=== PATIENT | female | born 1985 | race African-American/Black ===

== ENCOUNTER 2016-06-30 15:13 | Emergency (ER) | payer MEDICAID ==
[~2016-06-30] VITALS: Ht 170.2 cm; Wt 56.8 kg
[2016-06-30 15:16] VITALS: PULSE 72; TEMP 99.1
[2016-06-30] MEDS ORDERED: PRENATAL PO (15:19)
[2016-06-30] MEDS ORDERED: IRON325 MG PO (15:20)
[2016-06-30 16:27] LABS: BASO % 0.1 % (0.0-2.0); EOS # 0.1 (0.0-0.7); EOS % 1.4 % (0-4.0); GRAN # 6.3 (1.4-6.5); GRAN % 68.7 % (42.2-75.2); LYMPH % 21.2 % (20.0-51.0); MEAN CELL VOLUME 76 fl (80.0-100.0); MEAN CORPUSCULAR HGB CONC 34 g/dl (33.0-37.0); MEAN PLATELET VOLUME 10.9 fl (7.4-10.4); MONO # 0.8 (0.1-0.6); MONO % 8.4 % (1.7-9.3); PLATELET COUNT 253 K/mm3 (130-400); RED BLOOD COUNT 4.39 M/mm3 (4.10-5.30); REDCELL DISTRIBUTION WIDTH-CV 14.4 % (11.5-14.5); WHITE BLOOD COUNT 9.2 K/mm3 (4.8-10.8)
[2016-06-30 16:28] LABS: HEMATOCRIT 33.5 % (37.0-47.0); HEMOGLOBIN 11.4 g/dl (12.5-16.0); MEAN CORPUSCULAR HEMOGLOBIN 26 pg (27.0-31.0)
[2016-06-30 16:38] LABS: CALCIUM 9.5 mg/dL (8.4-10.2); CREATININE, serum 0.57 mg/dL (0.52-1.25); POTASSIUM 3.9 mmol/L (3.4-5.0)
[2016-06-30] MEDS ORDERED: PHENERGAN 25 TA25 MG PO (19:28)
[2016-06-30 19:29] VITALS: BP 118/54
== END 2016-06-30 19:29 | disposition home or self-care (01) ==
LOC: COL.ER 15:13
PROVIDERS: Emergency Medicine
DX: O99.89 Other specified diseases and conditions complicating pregnancy, childbirth and the puerperium (principal); R07.89 Other chest pain; Z3A.12 12 weeks gestation of pregnancy

== ENCOUNTER 2016-09-01 19:15 | Emergency (ER) | payer MEDICAID ==
[~2016-09-01] VITALS: Ht 170.2 cm; Wt 61.4 kg
[~2016-09-01 19:15] MED LIST: IRON325 MG PO; PHENERGAN 25 TA25 MG PO; PRENATAL PO
[2016-09-01 19:17] VITALS: TEMP 99.4
[2016-09-01 19:51] LABS: BASO % 0.2 % (0.0-2.0); EOS % 0.2 % (0-4.0); GRAN # 10.4 (1.4-6.5); GRAN % 85.9 % (42.2-75.2); LYMPH # 0.9 (1.2-3.4); LYMPH % 7.5 % (20.0-51.0); MEAN CELL VOLUME 81 fl (80.0-100.0); MEAN CORPUSCULAR HGB CONC 33 g/dl (33.0-37.0); MEAN PLATELET VOLUME 11.3 fl (7.4-10.4); MONO # 0.7 (0.1-0.6); MONO % 5.5 % (1.7-9.3); PLATELET COUNT 157 K/mm3 (130-400); RED BLOOD COUNT 3.85 M/mm3 (4.10-5.30); WHITE BLOOD COUNT 12.1 K/mm3 (4.8-10.8)
[2016-09-01 19:54] LABS: HEMATOCRIT 31.2 % (37.0-47.0); HEMOGLOBIN 10.3 g/dl (12.5-16.0); MEAN CORPUSCULAR HEMOGLOBIN 27 pg (27.0-31.0)
[2016-09-01 20:04] LABS: ADJUSTED CALCIUM 8.4 mg/dL (8.4-10.2); ALBUMIN 3.1 gm/dL (3.5-5.0); BILIRUBIN,TOTAL 0.5 mg/dL (0.0-1.0); CALCIUM 7.7 mg/dL (8.4-10.2); CREATININE, serum 0.49 mg/dL (0.52-1.25); POTASSIUM 3.6 mmol/L (3.4-5.0); TOTAL PROTEIN 6.2 gm/dL (6.4-8.2)
[2016-09-01 20:41] LABS: PH 7 (5-8); SQUAMOUS EPITHELIAL 0-2 /hpf; URINE APPEARANCE Clear; URINE BACTERIA Rare /hpf; URINE BILIRUBIN Negative (NEGATIVE); URINE BLOOD Negative (NEGATIVE); URINE COLOR Yellow; URINE GLUCOSE Negative (NEGATIVE); URINE KETONE Negative (NEGATIVE); URINE RBC 0-2 /hpf; URINE UROBILINOGEN Negative (NEGATIVE); URINE WBC 0-2 /hpf
[2016-09-01 22:46] VITALS: BP 103/53; PULSE 81
== END 2016-09-01 22:49 | disposition home or self-care (01) ==
LOC: COL.ER 19:15
PROVIDERS: Family Medicine
DX: O99.612 Diseases of the digestive system complicating pregnancy, second trimester (principal); Z3A.20 20 weeks gestation of pregnancy; K52.9 Noninfective gastroenteritis and colitis, unspecified
CPT/HCPCS: J2550; J7030

== ENCOUNTER 2016-09-26 08:23 | Outpatient (CLI) | payer MEDICAID ==
[~2016-09-26] VITALS: Ht 170.2 cm; Wt 60.9 kg
[2016-09-26 09:02] VITALS: BP 103/59; PULSE 81; TEMP 98.7
== END 2016-09-26 10:00 | disposition home or self-care (01) ==
LOC: LDRO 08:23
DX: O26.892 Other specified pregnancy related conditions, second trimester (principal); R10.9 Unspecified abdominal pain; Z3A.24 24 weeks gestation of pregnancy

== ENCOUNTER 2016-10-06 11:51 | Emergency (ER) | payer MEDICAID ==
[~2016-10-06] VITALS: Ht 170.2 cm; Wt 65.8 kg
[2016-10-06 11:53] VITALS: BP 110/58; PULSE 86; TEMP 98.2
[2016-10-06 12:50] LABS: PH 7 (5-8); URINE APPEARANCE Clear; URINE BILIRUBIN Negative (NEGATIVE); URINE BLOOD Negative (NEGATIVE); URINE COLOR Yellow; URINE GLUCOSE Negative (NEGATIVE); URINE KETONE Negative (NEGATIVE); URINE UROBILINOGEN Negative (NEGATIVE)
[2016-10-06 13:07] LABS: SQUAMOUS EPITHELIAL 0-2 /hpf; URINE WBC 0-2 /hpf
[2016-10-06] MEDS ORDERED: TERAZOL VG (13:20)
[2016-10-06 14:28] LABS: CHLAMYDIA/TRACH by PCR Female NOT DETECTED; NEISSERIA GON by PCR Female NOT DETECTED
== END 2016-10-06 13:30 | disposition home or self-care (01) ==
LOC: COL.ER 11:51
PROVIDERS: Nurse Practitioner
DX: O98.812 Other maternal infectious and parasitic diseases complicating pregnancy, second trimester (principal); B37.3 Candidiasis of vulva and vagina; Z3A.25 25 weeks gestation of pregnancy

== ENCOUNTER 2016-12-01 14:51 | Outpatient (CLI) | payer MEDICAID ==
[~2016-12-01] VITALS: Ht 170.2 cm; Wt 71.4 kg
[~2016-12-01 14:51] MED LIST changes: +TERAZOL VG
[2016-12-01 15:32] VITALS: BP 103/61; PULSE 74; TEMP 98.3
== END 2016-12-01 15:40 | disposition home or self-care (01) ==
LOC: LDRO 14:51
DX: Z34.83 Encounter for supervision of other normal pregnancy, third trimester (principal); Z3A.33 33 weeks gestation of pregnancy; F17.210 Nicotine dependence, cigarettes, uncomplicated

== ENCOUNTER 2016-12-14 20:41 | Outpatient (CLI) | payer MEDICAID ==
[~2016-12-14] VITALS: Ht 170.2 cm; Wt 68.2 kg
[2016-12-14 21:30] VITALS: BP 115/59; PULSE 16; TEMP 98.4
[2016-12-14 21:33] VITALS: BP 115/59; PULSE 70; TEMP 98.4
[2016-12-14 22:00] VITALS: BP 110/59; PULSE 71
[2016-12-14 22:30] VITALS: BP 111/59; PULSE 80
[2016-12-14 22:45] LABS: PH 7 (5-8); SQUAMOUS EPITHELIAL 0-2 /hpf; URINE APPEARANCE Clear; URINE BACTERIA None Seen /hpf; URINE BILIRUBIN Negative (NEGATIVE); URINE BLOOD Negative (NEGATIVE); URINE COLOR Yellow; URINE GLUCOSE Negative (NEGATIVE); URINE KETONE Negative (NEGATIVE); URINE RBC 0-2 /hpf; URINE UROBILINOGEN Negative (NEGATIVE); URINE WBC 0-2 /hpf
[2016-12-14 23:00] VITALS: BP 103/58; PULSE 65; TEMP 98.3
[2016-12-15] VITALS: BP 112/63; PULSE 68
[2016-12-15 00:30] VITALS: BP 108/57; PULSE 73; TEMP 98
[2016-12-15 01:00] VITALS: BP 101/55; PULSE 73
[2016-12-15 01:30] VITALS: BP 95/54; PULSE 68
[2016-12-15 02:00] VITALS: BP 100/58; PULSE 79
[2016-12-15 02:30] VITALS: BP 92/53; PULSE 75
== END 2016-12-15 03:36 | disposition home or self-care (01) ==
LOC: LDRO 20:41
PROVIDERS: Obstetrics & Gynecology
DX: O99.89 Other specified diseases and conditions complicating pregnancy, childbirth and the puerperium (principal); R10.9 Unspecified abdominal pain; Z3A.35 35 weeks gestation of pregnancy
CPT/HCPCS: J3105; J7120

== ENCOUNTER 2016-12-15 20:40 | Outpatient (CLI) | payer MEDICAID ==
[~2016-12-15] VITALS: Ht 170.2 cm; Wt 70.9 kg
[2016-12-15 21:15] VITALS: BP 116/62; PULSE 93; TEMP 98.7
[2016-12-15 21:30] VITALS: BP 116/62; PULSE 93; TEMP 98.7
[2016-12-15 22:00] VITALS: BP 106/63; PULSE 100
[2016-12-15 22:23] VITALS: BP 102/55; PULSE 84
== END 2016-12-15 23:05 ==
LOC: LDRO 20:40
DX: Z34.83 Encounter for supervision of other normal pregnancy, third trimester (principal); Z3A.35 35 weeks gestation of pregnancy

== ENCOUNTER 2016-12-18 18:55 | Outpatient (CLI) | payer MEDICAID ==
[~2016-12-18] VITALS: Ht 170.2 cm; Wt 71.8 kg
[2016-12-18 19:15] VITALS: BP 116/88; PULSE 90; TEMP 99.1
[2016-12-18 19:30] VITALS: BP 116/88; PULSE 90; TEMP 99.1
[2016-12-18 20:20] VITALS: TEMP 98.5
== END 2016-12-18 21:00 | disposition home or self-care (01) ==
LOC: LDRO 18:55
DX: O62.2 Other uterine inertia (principal); Z3A.35 35 weeks gestation of pregnancy

== ENCOUNTER 2016-12-23 19:31 | Outpatient (CLI) | payer MEDICAID ==
[~2016-12-23] VITALS: Ht 170.2 cm; Wt 71.4 kg
[2016-12-23] MEDS ORDERED: NIX CREME RINSE60 M1 TP (20:06)
[2016-12-23 21:30] VITALS: BP 106/65; PULSE 72; TEMP 98.6
== END 2016-12-23 22:19 | disposition home or self-care (01) ==
LOC: COL.ER 19:31 → LDRO 19:31 → EDSTATUS 20:35 → LDRO 22:19
DX: O62.9 Abnormality of forces of labor, unspecified (principal); O99.713 Diseases of the skin and subcutaneous tissue complicating pregnancy, third trimester; B85.0 Pediculosis due to Pediculus humanus capitis; Z3A.36 36 weeks gestation of pregnancy

== ENCOUNTER 2017-01-05 10:57 | Inpatient (IN) | payer MEDICAID ==
[2017-01-05] VITALS (24 sets, daily range): BP systolic 108–148; BP diastolic 53–86; PULSE 56–93; TEMP 97.4–98.3
[~2017-01-05] VITALS: Ht 170.2 cm; Wt 73.6 kg
[~2017-01-05 10:57] MED LIST changes: +NIX CREME RINSE60 M1 TP
[2017-01-05 13:25] LABS: BASO % 0.2 % (0.0-2.0); EOS # 0.2 (0.0-0.7); EOS % 1.7 % (0-4.0); GRAN # 6.2 (1.4-6.5); GRAN % 71.2 % (42.2-75.2); LYMPH # 1.5 (1.2-3.4); LYMPH % 17.3 % (20.0-51.0); MEAN CELL VOLUME 79 fl (80.0-100.0); MEAN CORPUSCULAR HGB CONC 33 g/dl (33.0-37.0); MEAN PLATELET VOLUME 12.2 fl (7.4-10.4); MONO # 0.8 (0.1-0.6); MONO % 8.9 % (1.7-9.3); PLATELET COUNT 185 K/mm3 (130-400); RED BLOOD COUNT 4.04 M/mm3 (4.10-5.30); REDCELL DISTRIBUTION WIDTH-CV 14.6 % (11.5-14.5); WHITE BLOOD COUNT 8.7 K/mm3 (4.8-10.8)
[2017-01-05 13:28] LABS: HEMATOCRIT 31.8 % (37.0-47.0); HEMOGLOBIN 10.5 g/dl (12.5-16.0); MEAN CORPUSCULAR HEMOGLOBIN 26 pg (27.0-31.0)
[2017-01-06 01:58] VITALS: BP 113/60; PULSE 56; TEMP 97.6
[2017-01-06 08:30] VITALS: BP 116/59; PULSE 75; TEMP 97.7
[2017-01-06] MEDS ORDERED: IBU800 M1 PO (08:36)
[2017-01-06 12:30] VITALS: BP 104/56; PULSE 64; TEMP 98.6
[2017-01-06 21:00] VITALS: BP 113/63; PULSE 70; TEMP 98
[2017-01-07 07:30] VITALS: BP 115/60; PULSE 57; TEMP 97.8
[2017-01-07] MEDS ORDERED: ZITHROMAX Z PA250 MG PO (11:49)
== END 2017-01-07 13:46 | disposition home or self-care (01) | DRG 775 ==
LOC: LDRO 10:57 → OB 13:00 → LDR 13:00 → OB 20:52
PROVIDERS: Obstetrics & Gynecology
PROC: 10E0XZZ Delivery of Products of Conception, External Approach (ICD-10-PCS; principal; 2017-01-05)
DX: O99.02 Anemia complicating childbirth (principal); D57.3 Sickle-cell trait; O99.824 Streptococcus B carrier state complicating childbirth; O99.334 Smoking (tobacco) complicating childbirth; F17.210 Nicotine dependence, cigarettes, uncomplicated; Z3A.38 38 weeks gestation of pregnancy; Z37.0 Single live birth
CPT/HCPCS: J2400; J2405; J2540; J2590; J2795; J3010; J7120

== ENCOUNTER 2017-05-27 10:00 | Emergency (ER) | payer MEDICAID ==
[~2017-05-27] VITALS: Ht 170.2 cm; Wt 57.3 kg
[~2017-05-27 10:00] MED LIST changes: +IBU800 M1 PO; +ZITHROMAX Z PA250 MG PO
[2017-05-27 10:03] VITALS: TEMP 99
[2017-05-27 10:49] LABS: BASO % 0.3 % (0.0-2.0); EOS # 0.5 (0.0-0.7); EOS % 7.5 % (0-4.0); GRAN % 50.4 % (42.2-75.2); LYMPH # 2.2 (1.2-3.4); LYMPH % 35.8 % (20.0-51.0); MEAN CELL VOLUME 80 fl (80.0-100.0); MEAN CORPUSCULAR HEMOGLOBIN 26 pg (27.0-31.0); MEAN CORPUSCULAR HGB CONC 33 g/dl (33.0-37.0); MEAN PLATELET VOLUME 10.5 fl (7.4-10.4); MONO # 0.4 (0.1-0.6); MONO % 5.8 % (1.7-9.3); PLATELET COUNT 266 K/mm3 (130-400); RED BLOOD COUNT 4.54 M/mm3 (4.10-5.30); REDCELL DISTRIBUTION WIDTH-CV 13.9 % (11.5-14.5)
[2017-05-27 10:52] LABS: HEMATOCRIT 36.4 % (37.0-47.0)
[2017-05-27 11:08] LABS: COLLECTION METHOD CLEAN CATCH
[2017-05-27 11:19] LABS: BUDDING YEAST Present /hpf; MUCOUS Present /lpf; PH 7 (5-8); SQUAMOUS EPITHELIAL 0-2 /hpf; URINE APPEARANCE Hazy; URINE BACTERIA Occasional /hpf; URINE BILIRUBIN Negative (NEGATIVE); URINE BLOOD 1+ (NEGATIVE); URINE COLOR Yellow; URINE GLUCOSE Negative (NEGATIVE); URINE KETONE Negative (NEGATIVE); URINE LEUKOCYTE ESTERASE 1+ (NEGATIVE); URINE NITRATE Positive (NEGATIVE); URINE PROTEIN(semi-quant) 1+ (NEGATIVE); URINE UROBILINOGEN Negative (NEGATIVE)
[2017-05-27] MEDS ORDERED: MACROBID 1100 MG/CAP PO (13:05)
[2017-05-27] MEDS ORDERED: FLAGYL500 MG PO (13:19)
[2017-05-27 13:29] VITALS: BP 118/76; PULSE 60
== END 2017-05-27 13:31 | disposition home or self-care (01) ==
LOC: COL.ER 10:00
PROVIDERS: Emergency Medicine
DX: N39.0 Urinary tract infection, site not specified (principal); N93.9 Abnormal uterine and vaginal bleeding, unspecified; F17.210 Nicotine dependence, cigarettes, uncomplicated

== ENCOUNTER 2017-07-20 12:47 | Emergency (ER) | payer MEDICAID ==
[~2017-07-20] VITALS: Ht 170.2 cm; Wt 56.8 kg
[~2017-07-20 12:47] MED LIST changes: +FLAGYL500 MG PO; +MACROBID 1100 MG/CAP PO
[2017-07-20 12:50] VITALS: BP 129/75; TEMP 98.6
[2017-07-20 13:36] LABS: BASO % 0.2 % (0.0-2.0); EOS # 0.3 (0.0-0.7); EOS % 4.2 % (0-4.0); GRAN # 3.8 (1.4-6.5); GRAN % 57.6 % (42.2-75.2); HEMOGLOBIN 12.3 g/dl (12.5-16.0); LYMPH # 2.1 (1.2-3.4); LYMPH % 31.5 % (20.0-51.0); MEAN CELL VOLUME 78 fl (80.0-100.0); MEAN CORPUSCULAR HEMOGLOBIN 26 pg (27.0-31.0); MEAN CORPUSCULAR HGB CONC 33 g/dl (33.0-37.0); MEAN PLATELET VOLUME 10.7 fl (7.4-10.4); MONO # 0.4 (0.1-0.6); MONO % 6.3 % (1.7-9.3); PLATELET COUNT 213 K/mm3 (130-400); RED BLOOD COUNT 4.71 M/mm3 (4.10-5.30); REDCELL DISTRIBUTION WIDTH-CV 14.4 % (11.5-14.5)
[2017-07-20 13:37] LABS: HEMATOCRIT 36.8 % (37.0-47.0)
[2017-07-20 13:45] LABS: ALBUMIN 4.5 gm/dL (3.5-5.0); BILIRUBIN,TOTAL 0.3 mg/dL (0.0-1.0); CALCIUM 9.1 mg/dL (8.4-10.2); CREATININE, serum 0.71 mg/dL (0.52-1.25); MAGNESIUM 1.8 mg/dL (1.6-2.3); POTASSIUM 3.6 mmol/L (3.4-5.0); TOTAL PROTEIN 7.6 gm/dL (6.4-8.2)
[2017-07-20 14:15] LABS: TSH w REFLEX 1.56 uIU/mL (0.465-4.680)
[2017-07-20 14:42] VITALS: PULSE 72
[2017-07-20 16:27] LABS: TRICYCLIC ANTIDEPRESS URINE NEGATIVE
== END 2017-07-20 14:43 | disposition home or self-care (01) ==
LOC: COL.ER 12:47
PROVIDERS: Physician Assistant
DX: F41.9 Anxiety disorder, unspecified (principal); D64.9 Anemia, unspecified; R25.1 Tremor, unspecified

== ENCOUNTER → 2018-03-09 | Outpatient (CLI) | payer MEDICAID | LOC: COL.VAS 10:00 | DX: R07.9 Chest pain, unspecified (principal); R06.09 Other forms of dyspnea ==

== ENCOUNTER → 2018-03-28 | Outpatient (CLI) | payer OTHER | LOC: COL.RAD 09:41 | DX: Z02.71 Encounter for disability determination (principal); M54.5 Low back pain ==

== ENCOUNTER 2018-08-13 09:17 | Emergency (ER) | payer MEDICAID ==
[~2018-08-13] VITALS: Ht 170.2 cm; Wt 51.4 kg
[2018-08-13 09:32] VITALS: TEMP 99
[2018-08-13 10:18] LABS: COLLECTION METHOD CLEAN CATCH
[2018-08-13 10:18] LABS: BASO % 0.4 % (0.0-2.0); EOS # 0.1 (0.0-0.7); EOS % 2.1 % (0-4.0); GRAN # 3.1 (1.4-6.5); GRAN % 58.2 % (42.2-75.2); HEMOGLOBIN 12.4 g/dl (12.5-16.0); LYMPH # 1.7 (1.2-3.4); LYMPH % 32.3 % (20.0-51.0); MEAN CELL VOLUME 79 fl (80.0-100.0); MEAN CORPUSCULAR HEMOGLOBIN 26 pg (27.0-31.0); MEAN CORPUSCULAR HGB CONC 34 g/dl (33.0-37.0); MEAN PLATELET VOLUME 10.3 fl (7.4-10.4); MONO # 0.4 (0.1-0.6); MONO % 6.6 % (1.7-9.3); PLATELET COUNT 202 K/mm3 (130-400); RED BLOOD COUNT 4.71 M/mm3 (4.10-5.30); REDCELL DISTRIBUTION WIDTH-CV 14.2 % (11.5-14.5)
[2018-08-13 10:26] LABS: MUCOUS Present /lpf; PH 6 (5-8); SQUAMOUS EPITHELIAL 0-2 /hpf; URINE APPEARANCE Clear; URINE BACTERIA None Seen /hpf; URINE BILIRUBIN Negative (NEGATIVE); URINE BLOOD 2+ (NEGATIVE); URINE COLOR Yellow; URINE GLUCOSE Negative (NEGATIVE); URINE KETONE Negative (NEGATIVE); URINE LEUKOCYTE ESTERASE Negative (NEGATIVE); URINE NITRATE Negative (NEGATIVE); URINE PROTEIN(semi-quant) 1+ (NEGATIVE); URINE RBC 0-2 /hpf; URINE UROBILINOGEN Negative (NEGATIVE)
[2018-08-13] MEDS ORDERED: IBU800 M1 PO (11:54)
[2018-08-13] MEDS ORDERED: FLAGYL500 MG PO (11:54)
[2018-08-13 12:02] VITALS: BP 105/55; PULSE 76
== END 2018-08-13 12:03 | disposition home or self-care (01) ==
LOC: COL.ER 09:17
PROVIDERS: Nurse Practitioner Primary Care
DX: N76.0 Acute vaginitis (principal); B96.89 Other specified bacterial agents as the cause of diseases classified elsewhere; N93.8 Other specified abnormal uterine and vaginal bleeding; F17.210 Nicotine dependence, cigarettes, uncomplicated; F12.90 Cannabis use, unspecified, uncomplicated

== ENCOUNTER → 2018-08-14 | Outpatient (CLI) | payer MEDICAID | LOC: COL.RAD 12:45 | DX: N93.9 Abnormal uterine and vaginal bleeding, unspecified (principal) ==

== ENCOUNTER → 2019-04-04 | Outpatient (CLI) | payer MEDICAID | LOC: COL.RAD 09:25 | DX: R39.11 Hesitancy of micturition (principal) ==

== ENCOUNTER → 2019-06-04 | Outpatient (CLI) | payer MEDICAID | LOC: COL.RAD 12:18 | DX: E61.1 Iron deficiency (principal); E55.9 Vitamin D deficiency, unspecified; E53.8 Deficiency of other specified B group vitamins; R25.3 Fasciculation ==

== ENCOUNTER 2019-06-18 11:04 | Emergency (ER) | payer MEDICAID ==
[~2019-06-18] VITALS: Ht 170.2 cm; Wt 50.0 kg
[~2019-06-18 11:04] MED LIST changes: -MULTI VITAMINS1 TAB PO; -NEURONTIN300 MG/CAP PO
[2019-06-18 11:25] VITALS: BP 97/64; TEMP 98.5
[2019-06-18] MEDS ORDERED: MULTI VITAMINS1 TAB PO (11:39)
[2019-06-18] MEDS ORDERED: NEURONTIN300 MG/CAP PO (11:39)
[2019-06-18 11:57] LABS: COLLECTION METHOD CLEAN CATCH
[2019-06-18 12:11] LABS: PH 7 (5-8); SQUAMOUS EPITHELIAL 0-2 /hpf; URINE APPEARANCE Clear; URINE BACTERIA Rare /hpf; URINE BILIRUBIN Negative (NEGATIVE); URINE BLOOD Negative (NEGATIVE); URINE COLOR Yellow; URINE GLUCOSE Negative (NEGATIVE); URINE KETONE Negative (NEGATIVE); URINE LEUKOCYTE ESTERASE Negative (NEGATIVE); URINE NITRATE Positive (NEGATIVE); URINE PROTEIN(semi-quant) Negative (NEGATIVE); URINE RBC 0-2 /hpf; URINE UROBILINOGEN Negative (NEGATIVE)
[2019-06-18] MEDS ORDERED: FLAGYL500 MG PO (12:26)
[2019-06-18 12:35] VITALS: PULSE 67
== END 2019-06-18 12:35 | disposition home or self-care (01) ==
LOC: COL.ER 11:04
PROVIDERS: Physician Assistant
DX: N76.0 Acute vaginitis (principal); B96.89 Other specified bacterial agents as the cause of diseases classified elsewhere; F17.210 Nicotine dependence, cigarettes, uncomplicated

== ENCOUNTER → 2019-06-18 | Outpatient (CLI) | payer MEDICAID ==
[~2019-06-18] MED LIST changes: +MULTI VITAMINS1 TAB PO; +NEURONTIN300 MG/CAP PO
== END ==
LOC: COL.RAD 10:19
DX: E55.9 Vitamin D deficiency, unspecified (principal); E53.9 Vitamin B deficiency, unspecified; E61.1 Iron deficiency

== ENCOUNTER → 2020-02-27 | Outpatient (CLI) | payer MEDICAID ==
[~2020-02-27] MED LIST changes: +MULTI VITAMINS1 TAB PO; +NEURONTIN300 MG/CAP PO
== END ==
LOC: COL.RAD 14:17
DX: M41.25 Other idiopathic scoliosis, thoracolumbar region (principal)

== ENCOUNTER → 2020-04-29 | Outpatient (CLI) | payer MEDICAID | LOC: COL.RAD 11:08 | DX: M95.2 Other acquired deformity of head (principal) ==

== ENCOUNTER → 2021-02-19 | Emergency (ER) | payer MEDICAID ==
[~2021-02-19] VITALS: Ht 170.2 cm; Wt 52.3 kg
[2021-02-19 20:15] VITALS: BP 109/66; PULSE 86; TEMP 97.2
== END ==
LOC: COL.ER 19:47
DX: R05.9 Cough, unspecified (principal); F17.210 Nicotine dependence, cigarettes, uncomplicated

== ENCOUNTER 2021-10-27 21:11 | Emergency (ER) | payer MEDICAID ==
[~2021-10-27] VITALS: Ht 170.2 cm; Wt 52.7 kg
[2021-10-27 21:14] VITALS: TEMP 98
[2021-10-27 21:54] LABS: COLLECTION METHOD CLEAN CATCH
[2021-10-27 21:59] LABS: BASO % 0.3 % (0.0-2.0); EOS # 0.4 K/mm3 (0.0-0.7); EOS % 3.8 % (0.0-4.0); GRAN % 71.9 % (42.2-75.2); HEMOGLOBIN 12.4 g/dl (12.5-16.0); LYMPH # 1.6 K/mm3 (1.2-3.4); LYMPH % 14.6 % (20.0-51.0); MEAN CELL VOLUME 77 fl (80.0-100.0); MEAN CORPUSCULAR HEMOGLOBIN 26 pg (27-31); MEAN CORPUSCULAR HGB CONC 34 g/dl (33.0-37.0); MONO % 9.1 % (1.7-9.3); PLATELET COUNT 241 K/mm3 (130-400); RED BLOOD COUNT 4.75 M/mm3 (4.10-5.30); REDCELL DISTRIBUTION WIDTH-CV 14.6 % (11.5-14.5)
[2021-10-27 22:01] LABS: HEMATOCRIT 36.6 % (37.0-47.0)
[2021-10-27 22:03] LABS: MUCOUS Present (NOT PRESENT); PH 6 (5-8); SQUAMOUS EPITHELIAL 0-2 /hpf (0-10); URINE APPEARANCE Hazy (CLEAR/HAZY); URINE BACTERIA Rare /hpf (NONE SEEN); URINE BILIRUBIN Negative (NEGATIVE); URINE BLOOD Negative (NEGATIVE); URINE COLOR Yellow (YELLOW); URINE GLUCOSE Negative (NEGATIVE); URINE KETONE Negative (NEGATIVE); URINE LEUKOCYTE ESTERASE Negative (NEGATIVE); URINE NITRATE Positive (NEGATIVE); URINE PROTEIN(semi-quant) Negative (NEGATIVE); URINE RBC 0-2 /hpf (0-2); URINE UROBILINOGEN Negative (NEGATIVE)
[2021-10-27 22:19] LABS: ALBUMIN 3.7 gm/dL (3.5-5.0); BILIRUBIN,TOTAL 0.3 mg/dL (0.2-1.2); CREATININE, serum 0.65 mg/dL (0.57-1.11); POTASSIUM 3.9 mmol/L (3.5-4.5); TOTAL PROTEIN 7.6 gm/dL (6.2-8.1)
[2021-10-27] MEDS ORDERED: ZOFRAN ODT4 MG PO (23:21)
[2021-10-27 23:55] VITALS: BP 110/68; PULSE 64
== END 2021-10-27 23:55 | disposition home or self-care (01) ==
LOC: COL.ER 21:11
PROVIDERS: Personal Emergency Response Attendant
DX: O21.0 Mild hyperemesis gravidarum (principal); O99.330 Smoking (tobacco) complicating pregnancy, unspecified trimester; F17.200 Nicotine dependence, unspecified, uncomplicated; Z3A.00 Weeks of gestation of pregnancy not specified; Z28.310 Unvaccinated for COVID-19
CPT/HCPCS: J2405; J7030

== ENCOUNTER 2022-08-31 13:30 | Outpatient (RCR) | payer MEDICAID ==
[~2022-08-31 13:30] MED LIST changes: +ZOFRAN ODT4 MG PO
== END 2022-09-18 ==
LOC: MKS.ESL.PT
DX: Q76.3 Congenital scoliosis due to congenital bony malformation (principal); M54.81 Occipital neuralgia